=== PATIENT | female | born 1980 | race African-American/Black ===

== ENCOUNTER 2020-10-05 23:21 | Emergency (ER) | payer OTHER ==
[~2020-10-05] VITALS: Ht 162.6 cm; Wt 116.8 kg
[2020-10-05] MEDS ORDERED: VENTAER INH (23:37)
[2020-10-06] MEDS ORDERED: ALBUTEROL 90 MCG/ACT 8GM HFA INHALER INH ONE ×2 (01:55→02:15)
[2020-10-06] MEDS ORDERED: VENTAER INH (02:26)
[2020-10-06 02:52] VITALS: BP 135/80
== END 2020-10-06 02:53 | disposition home or self-care (01) ==
LOC: M ED 23:21
DX: J45.901 Unspecified asthma with (acute) exacerbation (principal); Z79.51 Long term (current) use of inhaled steroids